=== PATIENT | female | born 1955 | race Caucasian/White ===

== ENCOUNTER → 2016-10-22 12:35 | Outpatient (CLI) | payer BC ==
[2014-01-02 07:18] VITALS: BMI 28.8
[~2016-10-22 12:35] MED LIST: AMBIEN5 MG PO; BIOTIN5 MG PO; CALCIUM 500 + D1 TAB PO; FOLATE0.4 MG PO; HYDROCODONE-APA1 TAB PO; LEVOTHROID100 MCG PO; LIBRAX CAPSULE1 CAP PO; LIPITOR10 MG PO; MACRODANTIN25 MG PO; MAGNESIUM OXID500 MG PO; MUCINEX600 MG PO; PEPCID40 MG PO; PROTONIX40 MG PO; TRANSDERM-SCOP1.5 MG TD; ZETIA10 MG PO; [UNRECOGNIZED DRUG - OTHER] PO
== END | disposition home or self-care (01) ==
LOC: D.RAD 10-20 13:00
DX: R13.14 Dysphagia, pharyngoesophageal phase (principal)